=== PATIENT | male | born 2000 | race Caucasian/White ===

== ENCOUNTER 2019-07-25 09:19 | Emergency (ER) | payer OTHER ==
[2019-07-25] MEDS ORDERED: Lidocaine 1% 10 ML MDV INJECT ONE (09:31)
--- NOTE | 2019-07-25 09:37 | EDM.PDOC ---
ED HPI GENERAL MEDICAL PROBLEM - General Chief Complaint: Upper Extremity Injury/Pain Stated Complaint: HAND LAC Time Seen by Provider: 07/25/19 09:28 Source of Information: Reports: Patient, RN Notes Reviewed - History of Present Illness INITIAL COMMENTS - FREE TEXT/NARRATIVE: 19-year-old male comes in with laceration injury base of left index finger. This happened at work short time ago. He accidentally cut his left hand as it went against a sharp edge. There was a lot of bleeding initially controlled with pressure. Last tetanus about 7-8 years ago. No other area of injury. - Related Data Allergies Allergy/AdvReac Type Severity Reaction Status Date / Time No Known Allergies Allergy Verified 07/25/19 09:26 Home Meds: Home Meds . [No Known Home Meds] 07/25/19 [History] Review of Systems - Review of Systems Review Of Systems: See Below Respiratory: Reports: No Symptoms GI/Abdominal: Reports: No Symptoms Musculoskeletal: Reports: Other (Lack injury left hand) Skin: Reports: Other Neurological: Denies: Numbness, Tingling, Weakness ED EXAM, GENERAL - Physical Exam Exam: See Below General Appearance: Alert, No Apparent Distress Head: Atraumatic Respiratory/Chest: No Respiratory Distress Extremities: Other (1.5 cm injury radial base of left index finger, shallow but gaping. No active bleeding at this time. No foreign material seen) Neurological: Alert, No Motor/Sensory Deficits Skin Exam: Warm, Dry, Normal Color ED TRAUMA EXTREMITY PROCEDURES - Laceration/Wound Repair Left Hand Lac/Wound Length In cm: 1.5 Appearance: Linear Distal NVT: Neuro & Vascular Intact Anesthetic Type: Local Local Anesthesia - Lidocaine (Xylocaine): 1% Plain Skin Prep: Saline Suture Size: 3-0 # of Sutures: 3 Suture Type: Nylon Course - Vital Signs Last Recorded V/S: Last Vital Signs Temp 98.5 F 07/25/19 09:27 Pulse 84 07/25/19 09:27 Resp BP 125/96 H 07/25/19 09:27 Pulse Ox 100 07/25/19 09:27 - Orders/Labs/Meds Meds: Medications Discontinued Medications Generic Name Dose Route Start Last Admin Trade Name Freq PRN Reason Stop Dose Admin Lidocaine HCl 10 ml 07/25/19 09:31 07/25/19 09:49 Xylocaine 1% INJECT 07/25/19 09:32 10 ml ONETIME ONE Administration Departure - Departure Time of Disposition: 10:00 Disposition: Home, Self-Care 01 Condition: Fair Clinical Impression: Hand laceration Qualifiers: Encounter type: initial encounter Foreign body presence: without foreign body Laterality: left Qualified Code(s): S61.412A - Laceration without foreign body of left hand, initial encounter - Discharge Information Referrals: PCP,None [Primary Care Provider] - Forms: ED Department Discharge Additional Instructions: Laceration care instructions. Stitches out in about 10 days. Keep protected when at work, have rechecked any sign of infection Sepsis Event Note - Focused Exam Vital Signs: Vital Signs Temp Pulse BP Pulse Ox 07/25/19 09:27 98.5 F 84 125/96 H 100 Date Exam was Performed: 07/25/19 Time Exam was Performed: 10:02
== END 2019-07-25 10:11 | disposition home or self-care (01) ==
LOC: JD.ED 09:19
DX: S61.412A Laceration without foreign body of left hand, initial encounter (principal); W26.8XXA Contact with other sharp object(s), not elsewhere classified, initial encounter; Y99.0 Civilian activity done for income or pay
CPT/HCPCS: 12001; 99282; J2001

== ENCOUNTER 2021-05-02 20:30 | Emergency (ER) | payer BC, OTHER ==
--- NOTE | 2021-05-02 22:53 | EDM.PDOC ---
ED HPI GENERAL MEDICAL PROBLEM - General Chief Complaint: Laceration Stated Complaint: LAC ABOVE EYE Time Seen by Provider: 05/02/21 22:46 Source of Information: Reports: Patient, RN Notes Reviewed History Limitations: Reports: No Limitations - History of Present Illness INITIAL COMMENTS - FREE TEXT/NARRATIVE: Patient is a 21-year-old male who presents to the ER for a left eyebrow laceration. Patient states he was trying to get into bed earlier tonight, and struck his left eyebrow on the corner of his iPad. This resulted in about a 1 cm linear laceration to the distal portion of his left eyebrow. States that it did bleed quite a bit but has stopped since being in the ER. No blurred vision or double vision, no headaches. Patient's been feeling well otherwise and has no fevers or chills, cough or shortness of breath. Treatments ART DEALER: Reports: Other (see below) Other Treatments ART DEALER: none Left Brow Pain Score (Numeric/FACES): 1 - Related Data Allergies Allergy/AdvReac Type Severity Reaction Status Date / Time No Known Allergies Allergy Verified 07/25/19 09:26 Home Meds: Home Meds . [No Known Home Meds] 07/25/19 [History] Past Medical History - Past Health History Medical/Surgical History: Denies Medical/Surgical History - Infectious Disease History Infectious Disease History: Reports: None Social & Family History - Tobacco Use Tobacco Use Status *Q: Never Tobacco User - Caffeine Use Caffeine Use: Reports: Energy Drinks - Recreational Drug Use Recreational Drug Use: No ED ROS GENERAL - Review of Systems Review Of Systems: Comprehensive ROS is negative, except as noted in HPI. ED EXAM, SKIN/RASH Exam: See Below Exam Limited By: No Limitations General Appearance: Alert, WD/WN, No Apparent Distress Eye Exam: Bilateral Eye: EOMI, Normal Inspection, PERRL Respiratory/Chest: No Respiratory Distress, Lungs Clear, Normal Breath Sounds, No Accessory Muscle Use, Chest Non-Tender Cardiovascular: Normal Peripheral Pulses, Regular Rate, Rhythm, No Edema Peripheral Pulses: 2+: Radial (L), Radial (R) Extremities: Normal Inspection, Normal Capillary Refill Neurological: Alert, Oriented, Normal Cognition, No Motor/Sensory Deficits Psychiatric: Normal Affect, Normal Mood Skin: Warm, Dry, Normal Color, No Rash, Wound/Incision (1 cm linear laceration to the left distal eyebrow.) ED SKIN PROCEDURES - Laceration/Wound Repair Left Distal Brow Appearance: Superficial, Linear, Clean Distal NVT: Neuro & Vascular Intact, No Tendon Injury Skin Prep: Chlorhexidine (Hibiciens), Saline Exploration/Debridement/Repair: Wound Explored, In a Bloodless Field, Explored to Base, No Foreign Material Found Closed with: Dermabond Lac/Wound length In cm: 1 Sterile Dressing Applied: Nurse Tetanus Status Addressed: Yes Complications: No Course - Vital Signs Last Recorded V/S: Last Vital Signs Temp 98.5 F 05/02/21 20:43 Pulse 78 05/02/21 20:43 Resp 20 05/02/21 20:43 BP 140/83 05/02/21 20:43 Pulse Ox 98 05/02/21 20:43 Departure - Departure Time of Disposition: 22:52 Disposition: Home, Self-Care 01 Condition: Good Clinical Impression: Eyebrow laceration Qualifiers: Encounter type: initial encounter Laterality: left Qualified Code(s): S01.112A - Laceration without foreign body of left eyelid and periocular area, initial encounter - Discharge Information *PRESCRIPTION DRUG MONITORING PROGRAM REVIEWED*: No *COPY OF PRESCRIPTION DRUG MONITORING REPORT IN PATIENT VINNY: No Instructions: Sutures, Indra, or Adhesive Wound Closure, [id number] Referrals: PCP,None [Primary Care Provider] - Additional Instructions: You have been evaluated in the ED for your laceration. Your wound was repaired with Dermabond, this is a medical grade skin adhesive, and should provide accurate closure of the wound and time to allow it to heal. This will end up dislodging itself, in a few days time. Please keep this area clean and dry, you may cleanse with regular soap and water. No vigorous scrubbing. Please try to avoid submerging the affected area in water for prolonged periods of time until the Dermabond wears off. Watch out for signs of infection like increased redness, swelling, pain at the laceration site, or if you should develop any fevers or chills. Please return to ED if your symptoms change or worsen. Sepsis Event Note (ED) - Focused Exam Vital Signs: Vital Signs Temp Pulse Resp BP Pulse Ox 05/02/21 20:43 98.5 F 78 20 140/83 98
== END 2021-05-02 23:24 | disposition home or self-care (01) ==
LOC: JD.ED 20:30
DX: S01.112A Laceration without foreign body of left eyelid and periocular area, initial encounter (principal); W22.8XXA Striking against or struck by other objects, initial encounter
CPT/HCPCS: 12011; 99282-25